=== PATIENT | male | born 1990 | race Caucasian/White ===

== ENCOUNTER 2016-10-29 15:58 | Emergency (ER) | payer BC ==
[~2016-10-29 15:58] MED LIST: ALBUTEROL17 GM INH; LEVAQUIN750 MG PO; NO MEDICATIONS; NORCO PO; ULTRAM PO; ZITHROMAX PO
== END 2016-10-29 22:05 | disposition home or self-care (01) ==
LOC: CED 15:58
DX: F32.9 Major depressive disorder, single episode, unspecified (principal); F41.9 Anxiety disorder, unspecified; F17.210 Nicotine dependence, cigarettes, uncomplicated
CPT/HCPCS: 99283